=== PATIENT | female | born 1980 | race Caucasian/White ===

== ENCOUNTER 2017-10-23 10:20 | Day surgery (SDC) | payer OTHER, SELFPAY ==
[2017-10-23] VITALS (8 sets, daily range): BP systolic 96–110; BP diastolic 62–74; PULSE 55–65; RESP 14–18; TEMP 35.8–36.2; O2SAT 95–100; BMI 31.8
--- NOTE | 2017-10-23 | FALS_PTH ---
PATIENT: JUDAH TOM LOC: [facility] [place] U#:[id number] AGE/SX: 37/F ROOM: RE10/23/[address]: Dr. Mari Macias MD : [id number] BED: DIS: 10/23/2017 SPEC #: [id number] RECD: 10/23/17 14:59 STATUS: SERGIO GIOVANNY #: [id number] JESE: 10/23/17 00:[address]: Mari Macias DEPT: SURGICAL PATHOLOGY RECD BY: Ellis Jaramillo ENTERED: 10/23/17 14:59 SP TYPE: FALL TUBES OTHR DR: No Primary Care Phys Tissues: Fallopian tube Procedures: Surgery Specimen Level II HEADER OPERATION: Laparoscopic salpingectomy PRE-OP DIAGNOSIS: Sterilization request TISSUE SUBMITTED: Bilateral fallopian tubes MICROSCOPIC DIAGNOSIS Bilateral fallopian tubes, salpingectomy: Bilateral fallopian tubes including fimbrial ends, no pathologic diagnosis. SJ:ghulam 10/24/17 MICROSCOPIC DESCRIPTION Slides are reviewed. GROSS DESCRIPTION Received is one container labeled with the patient's name and designated bilateral fallopian tubes. The specimen consists of bilateral fallopian tubes including fimbrial ends. The fallopian tubes are not identified as right or left. One of the fallopian tubes measures 6.5 cm in length and 0.5 cm in diameter. The second fallopian tube is received in two pieces. The proximal portion measures 5 cm in length and 0.4 cm in diameter. The distal end including fimbrial end measures 2 x 1.5 x 0.5 cm. Sections of both fallopian tubes do not reveal any mass lesion. Computer Sciences Professor sections are submitted in two cassettes with each cassette containing one fallopian tube. / SJ:rg 10/23/17 TC:4 CPT: 28774 x2
[2017-10-23 11:01] LABS: Internal QC Validated? YES +Cl - CLEAR BKGD; Pregnancy, Urine Negative Negative
[2017-10-23] MEDS: Celecoxib 200 MG Capsule 400 MG PO (11:02)
[2017-10-23] MEDS: Gabapentin 400 MG Capsule PO (11:03)
[2017-10-23] MEDS: Acetaminophen 500 MG Tablet 1000 MG PO (11:03)
[2017-10-23 11:06] LABS: Hematocrit 41.8 % (37-47); Hemoglobin 13.5 g/dl (12.0-15.0); Mean Corp Hgb Conc 32.3 g/gl (32-36); Mean Corpuscular Hgb 28.6 pg (27.0-32.0); Mean Corpuscular Volume 88.6 fL (81-99); Mean Platelet Vol. 10.2 fl (6.2-12.0); Platelet Count 202 K/mm3 (150-450); RBC Distribution Width CV 12.6 % (11.6-14.6); Red Blood Count 4.72 M/mm3 (4.2-5.4); White Blood Count 5.1 K/mm3 (4.4-11.0)
[2017-10-23 11:10] LABS: Scan Indicated on CBC? Y/N NO
--- NOTE | 2017-10-23 13:36 | PCM.DC.TUB ---
Discharge Diet: No Restrictions - Increase fluid intake for the next 48 hours. Discharge Activity: Return to Normal Activity, May Drive - when you are no longer taking pain/narcotic meds., May Shower, May Take a Tub Bath - in 7 days Additional Activity Instructions:: Ambulate often the next week after surgery. Nothing in the vagina for 5 days. Call your doctor if your incision/area has: Continuous Slow Oozing, Sudden Increased Bleeding, Increased Pain/ Swelling, Increased Redness, Foul Smelling Discharge Call your doctor if you observe: Fever of 101 or Higher Cleanse incision/area with: Soap & Water - your incisions have skin glue, they can get wet Allergies/Adverse Reactions: Allergies No Known Allergies Allergy (Verified 10/16/17 08:59) Medications to take at Discharge Fenugreek Seed Extract [Fenugreek] 2 cap PO TID 10/16/17 Primary Care Physician: Care Physician,No Primary [Primary Care Provider] - Test Results: Test results from this visit will be discussed in further detail at your follow-up appointment, if applicable. Please Follow Up With: Mari Macias MD - [phone] When: Dr. Macias's office in 2-4 weeks or as needed
[2017-10-23] MEDS: Bupivacaine Mpf 0.5% 30 ML VIAL (14:00)
--- NOTE | 2017-10-23 14:12 | PCM.OPRPT ---
Report of Operation Date of Procedure: 10/23/17 Pre-Operative Diagnosis: sterilization request Post-Operative Diagnosis: same Surgery/Procedure Performed:: Laparoscopic bilateral salpingectomy Description of Surgical Findings:: Normal-appearing cervix, vagina, uterus tubes and ovaries. artificial log machine operator: Rosemary Garces [id number] Type of Anesthesia:: General Anesthesiologist: John Maria Special Medications: none Specimen's removed: bilateral tubes Drains: none Estimated Blood Loss (mL): 10cc Fluids Replaced: 900 cc LR Description of Procedure: The patient was taken to the operating room where she was prepped and draped in the dorsolithotomy position. A weighted speculum was placed in the vagina and the anterior lip of the cervix was grasped with a tenaculum. The Ivette uterine manipulator was placed and the remainder of the instruments were removed from the vagina. Attention was turned to the abdomen. All port sites were infiltrated with 0.5% Marcaine before skin incisions were made. A 5 mm intraumbilical incision was made. The anterior abdominal wall was tented up with 2 towel clamps while a 5 mm blade less trocar and sleeve were directly inserted. Intraperitoneal placement was confirmed with the laparoscope. The pneumoperitoneum was created and the underlying abdominal contents were intact. The patient was placed in Trendelenburg. Right and left lower quadrant ports were placed under direct visualization lateral to the inferior epigastric vessels. The bowel was swept away and the above findings were noted. The LigaSure device was used to clamp seal and transect the antimesenteric portions of the right tube to the cornual insertion of the uterus. The tube was amputated from the uterus and the pedicles were all confirmed to be hemostatic. The same procedure was performed on the contralateral side. The specimens were brought out through a 5 mm port. The pedicles were again examined and found to be hemostatic. The lateral ports were removed under direct visualization and no active bleeding was noted. The pneumoperitoneum was released. The skin incisions were closed with Monocryl suture in a subcuticular fashion and skin glue. The vaginal instruments were removed and the vaginal sweep was completed by me. The procedure was performed by me with assistance. All sponge and needle counts were correct and the patient was taken to the recovery room in stable condition. Grafts/Implants Used: none - Complications none - Admit VTE Documentation VTE Present on Admission: No VTE Mechan Device Prophylaxis: SCD's VTE Pharm Prophylaxis ordered?: No
--- NOTE | 2017-10-23 18:11 | SUR.PHASEII ---
pt informed via phone call that Dr Diaz said to take Ibuprofen OTC 200mg x 3 tablets (which equals 600mg) every 6 hours as needed pain. Pt verbalizes understanding.
== END 2017-10-23 16:50 | disposition home or self-care (01) ==
LOC: SDC 10:20 → AC 10:22
PROVIDERS: Visit Provider Obstetrics & Gynecology
PROC: (CPT 58661; principal; 2017-10-23 11:40)
DX: Z30.2 Encounter for sterilization (principal)
CPT/HCPCS: 58661; 81025; 85027; 86850; 86900; 88302; J7120; J2405